=== PATIENT | male | born 1945 | race African-American/Black ===

== ENCOUNTER 2025-06-12 13:16 | Emergency (ER) | payer MEDICARE, MEDICAID ==
[~2025-06-12] VITALS: Ht 182.9 cm; Wt 82.0 kg
[2025-06-12 13:18] VITALS: O2SAT 99
[2025-06-12] MEDS: SODIUM CHLORIDE 0.9% 1,000 ML IV ONE (13:51)
[2025-06-12 14:21] LABS: BASOPHILS % 0.6 % (0.0-2.0); EOSINOPHILS % 4.1 % (0.0-5.0); HEMATOCRIT. 39.3 % (42.0-52.0); HEMOGLOBIN. 13.2 g/dL (14.0-18.0); LYMPHOCYTES % 28.8 % (20.0-50.0); MEAN PLATELET VOLUME 8.5 fl (7.4-10.4); MONOCYTES % 8.6 % (2.0-8.0); NEUTROPHILS % 57.9 % (40.0-76.0); PLATELET 119 x1000/uL (130-400); RED BLOOD CELL COUNT 4.25 mill/uL (4.7-6.1); RED CELL DISTRIBUTION WIDTH 15.4 % (11.6-14.6)
[2025-06-12 14:29] LABS: CREATININE 0.8 mg/dL (0.6-1.3); ETHANOL BLOOD < 10 mg/dL (<10); UREA NITROGEN BLOOD 7 mg/dL (9-23)
[2025-06-12 14:31] LABS: ASPARTATE AMINOTRANSFERASE 9 IU/L (<34); BILIRUBIN DIRECT 0.1 mg/dL (<=3.0); BILIRUBIN TOTAL 0.4 mg/dL (0.1-1.0); PROTEIN TOTAL 6.1 g/dL (6.0-8.3)
[2025-06-12 15:15] LABS: TROPONIN I HIGH SENSITIVITY < 4 ng/L (3.0-53)
[2025-06-12 17:05] VITALS: TEMP 36.9
[2025-06-12 17:05] LABS: GLUCOSE URINE NEGATIVE (NEGATIVE); KETONES URINE NEGATIVE (NEGATIVE); LEUKOCYTE ESTERASE URINE 3+ (NEGATIVE); NITRITE URINE POSITIVE (NEGATIVE); OCCULT BLOOD URINE 2+ (NEGATIVE); PH URINE 7.5 (4.5-8.0); PROTEIN URINE NEGATIVE (NEGATIVE); SPECIFIC GRAVITY URINE 1.005 (1.005-1.030); UROBILINOGEN URINE 0.2 E.U./dL (0.2-1.0)
[2025-06-12 17:23] LABS: COLOR URINE STRAW (YELLOW)
[2025-06-12 17:25] LABS: RBC URINE 0-2 /hpf (0-2); SQUAMOUS EPITHELIAL CELL URINE RARE /lpf (RARE/1+); WBC URINE 25-50 /hpf (0-2)
[2025-06-12 17:26] LABS: BACTERIA URINE 1+; CLARITY URINE SL HAZY (CLEAR)
[2025-06-12] MEDS ORDERED: CEFP200T13 MT (17:56)
[2025-06-12] MEDS: CEFTRIAXONE 1GM/50ML 50 ML IV SCH (18:19)
[2025-06-12 18:57] VITALS: BP 130/65; PULSE 63; RESP 20; O2SAT 98
== END 2025-06-12 19:29 | disposition home or self-care (01) ==
LOC: ER 13:16
DX: I95.9 Hypotension, unspecified (principal); I11.0 Hypertensive heart disease with heart failure; I50.9 Heart failure, unspecified; Z88.5 Allergy status to narcotic agent; Z88.6 Allergy status to analgesic agent
CPT/HCPCS: 80076; 80048; 81003; 80320; 82550; 85025; 87086; 87186; 84484; 87077; 36415; 71045; 93005; 96361; 96365; 99285; J0696; J7030; G0480

== ENCOUNTER 2025-08-03 13:10 | Emergency (ER) | payer MEDICARE, MEDICAID ==
[~2025-08-03] VITALS: Ht 193 cm; Wt 91.0 kg
[~2025-08-03 13:10] MED LIST: CEFP200T13 MT
[2025-08-03 13:16] VITALS: TEMP 37.1; O2SAT 96
[2025-08-03 14:31] LABS: HEMATOCRIT. 40.4 % (42.0-52.0); HEMOGLOBIN. 13.5 g/dL (14.0-18.0); MEAN PLATELET VOLUME 8.1 fl (7.4-10.4); PLATELET 124 x1000/uL (130-400); RED BLOOD CELL COUNT 4.38 mill/uL (4.7-6.1); RED CELL DISTRIBUTION WIDTH 14.4 % (11.6-14.6)
[2025-08-03 14:48] LABS: TROPONIN I HIGH SENSITIVITY < 4 ng/L (3.0-53)
[2025-08-03 14:49] LABS: CREATININE 0.9 mg/dL (0.6-1.3); UREA NITROGEN BLOOD < 5 mg/dL (9-23)
[2025-08-03 14:51] LABS: ASPARTATE AMINOTRANSFERASE 9 IU/L (<34)
[2025-08-03 14:52] LABS: BILIRUBIN DIRECT 0.2 mg/dL (<=3.0); BILIRUBIN TOTAL 0.6 mg/dL (0.1-1.0); PROTEIN TOTAL 6.1 g/dL (6.0-8.3)
[2025-08-03] MEDS: SODIUM CHLORIDE 0.9% 1,000 ML IV ONE (15:16)
[2025-08-03] MEDS ORDERED: PSEU120T56 MT (16:50)
[2025-08-03 16:53] LABS: EOSINOPHILS % MANUAL 14.0 % (0.0-5.0); LYMPHOCYTES % MANUAL 28.0 % (20.0-50.0); MONOCYTES % MANUAL 7.0 % (2.0-8.0); NEUTROPHILS % MANUAL 51.0 % (45.0-75.0); PLATELET ESTIMATE DECREASED
[2025-08-03 17:24] VITALS: BP 133/80; PULSE 69; RESP 15; O2SAT 97
== END 2025-08-03 18:30 | disposition home or self-care (01) ==
LOC: ER 14:11
DX: R53.1 Weakness (principal); R09.81 Nasal congestion; I11.0 Hypertensive heart disease with heart failure; I50.9 Heart failure, unspecified; Z88.5 Allergy status to narcotic agent; Z99.3 Dependence on wheelchair
CPT/HCPCS: 99284; 96360; 71045; 80076; 80048; 83880; 83735; 85025; 84484; 36415; J7030